=== PATIENT | female | born 1980 | race Caucasian/White ===

== ENCOUNTER 2018-09-22 18:42 | Emergency (ER) | payer MEDICAID ==
[~2018-09-22] VITALS: Ht 172.7 cm; Wt 58.0 kg
[~2018-09-22 18:42] MED LIST: albuterol inhaler
[2018-09-22 18:58] VITALS: BP 127/96
== END 2018-09-22 23:34 | disposition left against medical advice (07) ==
LOC: ER 18:43
DX: T14.8XXA Other injury of unspecified body region, initial encounter (principal); Z53.21 Procedure and treatment not carried out due to patient leaving prior to being seen by health care provider; X58.XXXA Exposure to other specified factors, initial encounter; Y93.89 Activity, other specified; Y92.89 Other specified places as the place of occurrence of the external cause; Y99.8 Other external cause status